=== PATIENT | female | born 1985 | race Caucasian/White ===

== ENCOUNTER 2023-01-09 13:30 | Emergency (ER) | payer BC | END 2023-01-09 14:00 | disposition home or self-care (01) | LOC: VM.ED 13:30 | DX: O9A.212 Injury, poisoning and certain other consequences of external causes complicating pregnancy, second trimester (principal); M54.9 Dorsalgia, unspecified; Z3A.17 17 weeks gestation of pregnancy; Y09 Assault by unspecified means; Y92.39 Other specified sports and athletic area as the place of occurrence of the external cause; Z91.048 Other nonmedicinal substance allergy status; Z79.899 Other long term (current) drug therapy | CPT/HCPCS: 99283 ==